=== PATIENT | female | born 1975 | race Two or more races ===

== ENCOUNTER 2016-10-05 06:21 | Day surgery (SDC) | payer BC ==
[2016-10-05] MEDS ORDERED: IV START KIT ONE (06:30)
[2016-10-05] MEDS ORDERED: LACTATED RINGERS 1,000 ML ONE (06:30)
[2016-10-05] MEDS ORDERED: LIDOCAINE 1% 2 ML VIAL ID PRN (06:33)
[2016-10-05] MEDS ORDERED: CEFAZOLIN SODIUM 2 GRAM PREMIX 2 G in Premix (D5W) 100 ml 1 EACH IV PRN (06:33)
[2016-10-05] MEDS ORDERED: CEFAZOLIN SODIUM 2 GRAM PREMIX 100 ML IV ONE (06:35)
[2016-10-05] MEDS ORDERED: DEXAMETHASONE SOD PHOS 4 MG/1 ML VIAL ONE (06:53)
[2016-10-05] MEDS ORDERED: LIDOCAINE 2% (PRES FREE) 5 ML VIAL ONE (06:53)
[2016-10-05] MEDS ORDERED: ONDANSETRON 4 MG/2ML 2 ML VIAL ONE (06:53)
[2016-10-05] MEDS ORDERED: METOCLOPRAMIDE HCL 5 MG/ML 2ML VIAL ONE (06:53)
[2016-10-05] MEDS ORDERED: MIDAZOLAM HCL 1 MG/ML 2ML VIAL ONE (06:53)
[2016-10-05] MEDS ORDERED: FENTANYL 100 MCG/2 ML VIAL ONE (06:53)
[2016-10-05] MEDS ORDERED: PROPOFOL 40 ML IV ONE (06:53)
[2016-10-05] MEDS ORDERED: BUPIVACAINE 0.5% W/EPI SDV 30 ML VIAL ONE (07:05)
[2016-10-05] MEDS ORDERED: LIDOCAINE 1% (PRES FREE) 30 ML VIAL ONE (07:05)
[2016-10-05] MEDS ORDERED: EPHEDRINE SULFATE UD SYR 25 MG 25 MG/5 ML SYRINGE IV ONE (08:34)
[2016-10-05] MEDS ORDERED: PROPOFOL 20 ML IV ONE (09:06)
[2016-10-05] MEDS ORDERED: HYDROMORPHONE HCL 2 MG/ML SYRINGE ONE (09:27)
[2016-10-05] MEDS ORDERED: NALOXONE HCL 0.4 MG/ML VIAL IV PRN (09:40)
[2016-10-05] MEDS ORDERED: HYDROMORPHONE HCL 1 MG/ML SYRINGE IV PRN ×2 (09:40→10:28)
[2016-10-05] MEDS ORDERED: PROMETHAZINE HCL 25 MG/ML VIAL IM PRN (09:40)
[2016-10-05] MEDS ORDERED: ATROPINE SULFATE 0.4 MG/1 ML VIAL IV PRN (09:40)
[2016-10-05] MEDS ORDERED: FENTANYL 100 MCG/2 ML VIAL IV PRN (09:40)
[2016-10-05] MEDS ORDERED: ONDANSETRON 4 MG/2ML 2 ML VIAL IV PRN ×2 (09:40→10:28)
[2016-10-05] MEDS ORDERED: LACTATED RINGERS 1,000 ML IV SCH ×2 (09:45→10:28)
--- NOTE | 2016-10-05 10:16 | PCMBPN ---
Brief Post Op Note: Date of Procedure: 10/05/16 Preoperative Diagnosis: 1. Left breast mass Postoperative Diagnosis: 1. Same Procedure: Left breast partial mastectomy Surgeon: Gisselle Brown MD Assist:Barb Carroll Anesthesia: General Findings: see dictation Condition: stable Complications: none IV Fluids: see anesthesia report Urine Output: not recorded Estimated Blood Loss: 250 mLs Tourniquet Time: N/A Specimens: Left breast mass, and superior/medial left breast mass Implants: n/a Drains: 10 F
[2016-10-05] MEDS ORDERED: OXYCODONE/ACETAMINOPHEN 5/325 MG TABLET PO PRN (10:28)
[2016-10-05] MEDS ORDERED: HYDROMORPHONE HCL 0.5 MG/0.5 ML SYRINGE ONE (10:53)
--- NOTE | 2016-10-05 11:40 | OP ---
JOSEPH DOOLEY [id number] : 1975 DATE OF SERVICE: October 05, 2016 PREOPERATIVE DIAGNOSIS: Left breast mass. POSTOPERATIVE DIAGNOSIS: Left breast mass. PROCEDURE PERFORMED: LEFT BREAST PARTIAL MASTECTOMY. SURGEON: Gisselle Brown M.D. CARDIOLOGY RN: Karol Talbot ANESTHESIA: General with local. FINDINGS: About a 2 cm in diameter hard mass in the left breast at the 2 to 3 o'clock position surrounded by fibroadenomatous tissue that was much, much larger, about, I would say, over 10 cm in length by 5 cm in width and 2 cm in depth. TECHNIQUE: The patient was brought back to the operating room and placed under general anesthesia. The left breast was prepped and draped in sterile surgical fashion. Local anesthetic was injected in the dermis and subcutaneous tissue in the upper outer quadrant of the left breast over where the mass was and #15 blade scalpel was used to make a curvilinear incision in the left outer breast. Electrocautery was used to cut through the dermis and into the deeper tissues over the mass and then was used to try to remove the mass, but the mass was quite large and it was difficult to get good cautery deeper in so I switched to Metzenbaum scissors, and then used the Metzenbaum scissors to cut the mass out completely. I used Allis clamps to hold on to the mass. In fact, I ended up cutting the mass in half and took out the lower half and marked it and sent it off for specimen. I then took out the upper half and marked it for specimen. The mass was much larger than anticipated and encompassed at least half of her breast. There was a more firm area at about the 2 o'clock position, but it was encompassed in a larger fibroadenoma and did not appear as normal breast tissue. It was well circumscribed and it all needed to be removed. After removing the whole encapsulated mass, the breast tissue felt fairly normal if not a little bit fibrous. The cavity was irrigated. Electrocautery was used for hemostasis, and a 10 Somali drain was placed into the cavity. #3-0 Vicryl was used to close the dermis and #4-0 Monocryl was used to close the skin. SteriStrips were applied and the patient was awakened and returned to recovery in stable condition. All needle, instrument and sponge counts were correct at the end of the case.
[2016-10-05] MEDS ORDERED: OXYCODONE/ACETAMINOPHEN 5/325 MG TABLET ONE (12:47)
--- NOTE | 2016-10-08 11:02 | SURGPATH ---
[facility] [address] [place] [id number] Patient Name: JOSEPH DOOLEY MR#: [id number] : 1975 Gender: F Specimen #: [id number] Collected: 10/05/2016 Received: 10/07/2016 Reported: 10/08/2016 Submitting Phys: BELIA BARKER Copy To Phys: SUKHI LANGSTON [facility] Clinical History / Pre-Operative Diagnosis: Left breast mass Specimen Source / Surgical Procedure Performed: #1 left breast mass, #2 superior medial left breast mass Interpretation: 1. LEFT BREAST MASS, LUMPECTOMY: - FIBROADENOMA - PROLIFERATIVE FIBROCYSTIC CHANGES 2. LEFT BREAST, SUPERIOR MEDIAL, LUMPECTOMY: - PROLIFERATIVE FIBROCYSTIC CHANGES WITH FIBROADENOMATOUS CHANGE Electronically Signed Out Virgilio Vinson M.D. Gross Description: 1. The specimen is received in formalin labeled with the patient's name and "left breast mass". SPECIMEN: Fixation: The intact specimen was fixed in formalin for 48 hours. The cut specimen was fixed in formalin for 8 hours. Tissue(s) included: Breast tissue/lumpectomy without skin or identifiable muscle Weight: 51 g Dimensions: 6.5 cm from superior to inferior, 5.5 cm from medial to lateral, 2.5 cm from anterior to posterior Orientation (if specified): Short-superior, long-lateral, double-deep Margin designation: anterior orange, posterior black, superior blue, inferior green, medial red, lateral yellow. TUMOR: The specimen is sectioned perpendicular to the superior-inferior axis into 12 slices. There is a lesion in slices 6-11. Size/Descriptive features: There is white firm faintly whorled well-demarcated nodule which is 3 cm from superior to inferior, 2.8 cm from medial to lateral, and 2.2 cm anterior to posterior Status of surgical margins: Grossly appears to be at the anterior and medial margins, 0.1-0.2 cm from the inferior margin, 0.3 cm from the deep margin, 2.5 cm from the lateral margin, 3 cm from the superior margin. Other(s): The remaining cut surface is composed of fatty breast tissue with abundant dense white fibrous tissue. TISSUE(S) SUBMITTED FOR MICROSCOPIC EVALUATION: 1A perpendicular sections of superior margin, slice #1 1B medial half slice #3 1C lateral half slice #5 1D medial third slice #6 1E lateral third slice #7 1F middle third slice #7 1G medial third slice #7 1H medial third slice #8 1I lateral half slice #11 1J medial half slice #11 1K perpendicular sections of inferior margin, slice #12 2. The specimen is received in formalin labeled with the patient's name and "superior medial left breast mass". SPECIMEN: Tissue(s) included: Breast tissue/lumpectomy without identifiable skin or muscle Weight: 38 g Dimensions: 5.5 cm from superior to inferior, 5 cm from medial to lateral, 2 cm from anterior to posterior Orientation (if specified): Short-superior, long-lateral, double-deep Margin designation: anterior orange, posterior black, superior blue, inferior green, medial red, lateral yellow. With the provided orientation the anterior surface appears to be (and is grossly consistent with) the old margin. The specimen is sectioned perpendicular to the superior-inferior axis into nine slices. The cut surface is primarily composed of white rubbery solid breast tissue. There is minimal fatty tissue and no identifiable distinct lesion. Sections: 2A perpendicular sections of superior margin, slice #1 2B lateral half slice #3 2C medial third slice #4 2D middle third slice #5 2E lateral third slice #6 2F middle third #7 2G medial third slice #8 2H perpendicular sections of inferior margin, slice #9 DURGA Bell Microscopic Description: 1. The sections show breast tissue exhibiting a circumscribed nodule composed of a proliferation of bland appearing ducts with surrounding stroma that ranges from myxoid to fibrotic and there is a preserved lobular architecture. The surrounding breast tissue shows ducts with florid epithelial hyperplasia, adenosis and sclerosing adenosis 2. The sections show breast tissue with proliferative fibrocystic changes with ducts exhibiting florid epithelial hyperplasia, adenosis and sclerosing adenosis and cyst formation with fibrotic stroma. Some areas show fibroadenomatous change. There are no malignant features identified. 1: 71217 2: 58287 D24.2
== END 2016-10-05 13:20 | disposition home or self-care (01) ==
LOC: SDC 06:21
PROVIDERS: ATTEND Surgery
PROC: 0HBU0ZZ Excision of Left Breast, Open Approach (ICD-10-PCS; principal; 2016-10-05)
DX: D24.2 Benign neoplasm of left breast (principal)
CPT/HCPCS: 19301; J1170 ×2; J3010; J1100; A9270; J2765; J2250; J2001; J2405; J7120; J0690

== ENCOUNTER 2016-11-03 00:21 | Emergency (ER) | payer BC ==
[2016-11-03] MEDS ORDERED: AMOXICILLIN TRIHYDRATE 250 MG CAPSULE ONE ×2 (00:48→00:51)
== END 2016-11-03 00:59 | disposition home or self-care (01) ==
LOC: ED 00:21
DX: H66.91 Otitis media, unspecified, right ear (principal)